=== PATIENT | male | born 1950 | race Caucasian/White ===

== ENCOUNTER → 2021-02-09 | Day surgery (SDC) | payer MEDICARE, BC ==
[~2021-02-09] MED LIST: ACETAMINOPHEN 325MG TABLET PO PRN; ALD50 PO; ALPR1TAB2 PO; ASPI-1497 PO; ATROPINE SULFATE 1MG/10ML SYR IV PRN; CELE200C PO; CLOP-31 PO; FENTANYL CITRATE/PF 50MCG/ML 5ML VIAL ONE; FURO40TA5 PO; HUMOLOG SUBCUT; INSLAN SQ; LANTUS SUBCUT; LEVO50TA8 PO; LIDOCAINE HCL 2% JELLY 5ML ONE; LIP40 PO; MELO15TA13 PO; METF-416 PO; METO100T16 PO; MIDAZOLAM HCL 5 MG/5 ML VIAL ONE; NITR4.1S2 TL; ONDANSETRON HCL 4MG/2ML INJ IV PRN; POTA20TA12 PO; PROT40 PO; RANO500T3 PO; ROSU20TA2 PO; TAMS-11 PO; TETRACAINE/BENZOCAINE/BUTAMBEN 20 GM SPRAY MM ONE; TRIC160 PO; mvi PO
== END | disposition home or self-care (01) ==
LOC: CCL 08:13
PROVIDERS: ATTEND Specialist
DX: I48.91 Unspecified atrial fibrillation (principal); I34.0 Nonrheumatic mitral (valve) insufficiency; I25.10 Atherosclerotic heart disease of native coronary artery without angina pectoris; E11.9 Type 2 diabetes mellitus without complications; E78.5 Hyperlipidemia, unspecified; F41.9 Anxiety disorder, unspecified; Z79.82 Long term (current) use of aspirin; Z79.84 Long term (current) use of oral hypoglycemic drugs; Z79.899 Other long term (current) drug therapy; Z98.890 Other specified postprocedural states
CPT/HCPCS: 92960; 93312; J2250; J3010